=== PATIENT | male | born 1950 | race Caucasian/White ===

== ENCOUNTER 2016-10-28 11:20 | Observation (INO) | payer OTHER ==
[2016-10-28] MEDS ORDERED: BACITRACIN IRRIGATION/NS 50,000 UNITS/1,000 ML BTL IRR ONE (11:27)
[2016-10-28] MEDS ORDERED: diphenhydrAMINE 25 MG CAP PO ONE (11:27)
[2016-10-28] MEDS ORDERED: NS 1,000 ML IV ONE (11:27)
[2016-10-28] MEDS ORDERED: DIAZEPAM 5 MG TAB PO ONE (11:27)
[2016-10-28] MEDS ORDERED: ceFAZolin 2 GM/DEXTROSE 100 ML IV ONE (11:27)
--- NOTE | 2016-10-28 11:45 | CPEKG ---
Heart Rate: 108 RR Interval: 556 QRSD Interval: 92 QT Interval: Invalid QTC Interval: Invalid QRS Massey: -26 T Wave Massey: 82 EKG Severity - ABNORMAL ECG - EKG Impression: ATRIAL FIBRILLATION, V-RATE 77-123 EKG Impression: BORDERLINE LEFT AXIS DEVIATION Electronically Signed By: Damion Finnegan 28-Oct-2016 11:47:45
[2016-10-28 12:09] LABS: % IMMATURE GRANULYOCYTES 0.3 % (0.0-1.1); ABSOLUTE IMMATURE GRANULOCYTES 0.02 10^3/uL (0.00-0.10); ADD DIFF? NO; ADD MORPH? NO; ADD SCAN? NO; ATYPICAL LYMPHOCYTE FLAG 0 (0-99); FRAGMENT RBC FLAG 0 (0-99); HEMATOCRIT 43.2 % (40.0-51.0); HEMOGLOBIN 14.4 g/dL (13.7-17.5); LEFT SHIFT FLG 0 (0-99); LIPEMIA HEMOLYSIS FLAG 80 (0-99); MEAN CELL HEMOGLOBIN 32.4 pg (27.9-34.1); MEAN CELL HEMOGLOBIN CONCENTR. 33.3 g/dL (32.4-36.7); MEAN CELL VOLUME 97.1 fL (81.5-99.8); PLATELET CLUMPS FLAG 0 (0-99); PLATELET COUNT 129 10^3/uL (150-400); RED BLOOD CELL COUNT 4.45 10^6/uL (4.40-6.38); RED CELL DISTRIBUTION WIDTH 16.4 % (11.5-15.2)
[2016-10-28 12:18] LABS: ANION GAP 16 mEq/L (8-16); CALCIUM 9.4 mg/dL (8.5-10.4); CARBON DIOXIDE 19 mEq/l (22-31); CHLORIDE 104 mEq/L (97-110); CREATININE 2.5 mg/dL (0.7-1.3); GLOMERULAR FILTRATION RATE 26; GLUCOSE 193 mg/dL (70-100); SODIUM 139 mEq/L (134-144)
[2016-10-28 12:19] LABS: INR 1.52 (0.83-1.16); PROTIME(PATIENT) 18.3 SEC (12.0-15.0)
[2016-10-28] MEDS ORDERED: BUPIVACAINE 0.5% 30 ML SDV ONE (13:35)
[2016-10-28] MEDS ORDERED: LIDOCAINE 1% 300 MG/30 ML SDV ONE (13:35)
[2016-10-28] MEDS ORDERED: LIDO/EPI 1% **for epidural** 30 ML SDV ONE (13:35)
[2016-10-28] MEDS ORDERED: MIDAZOLAM 2 MG/2 ML VIAL ONE ×2 (14:06→14:18)
[2016-10-28] MEDS ORDERED: fentaNYL 100 MCG/2 ML INJ ONE (14:17)
[2016-10-28] MEDS ORDERED: PROPOFOL/EMULSION 500 MG/50 ML BOTTLE IV ONE (14:18)
[2016-10-28] MEDS ORDERED: WARFARIN SODIUM 7.5 MG TAB PO SCH (16:00)
[2016-10-28] MEDS ORDERED: BORTEZOMIB SC SCH (16:00)
[2016-10-28] MEDS ORDERED: CALCIUM CHLORIDE 1 GM/10 ML INJ ONE (16:08)
[2016-10-28] MEDS ORDERED: LIDOCAINE 2% JELLY 5 ML TUBE ONE (16:08)
[2016-10-28] MEDS ORDERED: PHENYLEPHRINE HCL 100 MCG/ML SYR ONE (16:08)
[2016-10-28] MEDS ORDERED: LIDOCAINE 2% 100 MG/5 ML SYR ONE (16:08)
[2016-10-28] MEDS ORDERED: RANITIDINE 50 MG/2 ML VIAL ONE (16:08)
[2016-10-28] MEDS ORDERED: epHEDrine SULFATE 10 MG/ML SYR ONE (16:08)
[2016-10-28] MEDS ORDERED: DEXAMETHASONE 4 MG/ML VIAL ONE (16:08)
[2016-10-28] MEDS ORDERED: NON-FORMULARY NEW DRUG (Simvastatin [Zocor] 20 MG) PO SCH (18:00)
[2016-10-28] MEDS ORDERED: ATORVASTATIN CALCIUM 10 MG TAB PO SCH (18:00)
[2016-10-28] MEDS ORDERED: TORSEMIDE 50 MG PO SCH (18:00)
[2016-10-28] MEDS ORDERED: TORSEMIDE 20 MG TAB PO SCH (18:00)
[2016-10-28] MEDS ORDERED: HYDROCODONE/APAP 5/325 TAB PO PRN (19:53)
[2016-10-28] MEDS: glipiZIDE 10 MG TAB PO SCH (20:28)
[2016-10-28] MEDS: METOPROLOL TARTRATE 100 MG TAB PO SCH (20:28)
[2016-10-28] MEDS: ACYCLOVIR 200 MG CAP PO SCH (20:29)
[2016-10-28] MEDS ORDERED: INSULIN GLARGINE 100 UNITS/ML SYRINGE SC SCH (21:00)
[2016-10-28 23:40] VITALS: RESP 16
[2016-10-29 05:06] LABS: % IMMATURE GRANULYOCYTES 0.3 % (0.0-1.1); ABSOLUTE IMMATURE GRANULOCYTES 0.02 10^3/uL (0.00-0.10); ADD DIFF? NO; ADD MORPH? NO; ADD SCAN? NO; ATYPICAL LYMPHOCYTE FLAG 0 (0-99); FRAGMENT RBC FLAG 0 (0-99); HEMATOCRIT 41.8 % (40.0-51.0); HEMOGLOBIN 13.8 g/dL (13.7-17.5); LEFT SHIFT FLG 0 (0-99); LIPEMIA HEMOLYSIS FLAG 80 (0-99); MEAN CELL HEMOGLOBIN 32.2 pg (27.9-34.1); MEAN CELL VOLUME 97.7 fL (81.5-99.8); MEAN PLATELET VOLUME 11.5 fL (8.7-11.7); PLATELET CLUMPS FLAG 0 (0-99); PLATELET COUNT 117 10^3/uL (150-400); RED BLOOD CELL COUNT 4.28 10^6/uL (4.40-6.38); RED CELL DISTRIBUTION WIDTH 16.8 % (11.5-15.2)
[2016-10-29 05:21] LABS: ANION GAP 15 mEq/L (8-16); CARBON DIOXIDE 20 mEq/l (22-31); CHLORIDE 102 mEq/L (97-110); CREATININE 2.4 mg/dL (0.7-1.3); GLOMERULAR FILTRATION RATE 27; GLUCOSE 236 mg/dL (70-100); POTASSIUM 4.4 mEq/L (3.5-5.2); SODIUM 137 mEq/L (134-144)
[2016-10-29] MEDS: glipiZIDE 10 MG TAB PO SCH (07:34)
[2016-10-29] MEDS: ACYCLOVIR 200 MG CAP PO SCH (07:35)
[2016-10-29] MEDS: METOPROLOL TARTRATE 100 MG TAB PO SCH (07:35)
[2016-10-29 07:37] VITALS: BP 121/85; PULSE 93
[2016-10-29 07:39] VITALS: TEMP 98.4; O2SAT 95
--- NOTE | 2016-10-29 08:34 | CPEKG ---
Heart Rate: 96 RR Interval: 625 QRSD Interval: 90 QT Interval: 404 QTC Interval: 511 QRS Santo: -22 T Wave Santo: 105 EKG Severity - ABNORMAL ECG - EKG Impression: ATRIAL FIBRILLATION, V-RATE 60-127 EKG Impression: BORDERLINE LEFT AXIS DEVIATION EKG Impression: CONSIDER ANTEROSEPTAL INFARCT EKG Impression: NONSPECIFIC T ABNORMALITIES, LATERAL LEADS Electronically Signed By: Celso Gomez 30-Oct-2016 07:25:22
[2016-10-29] MEDS ORDERED: CHOLECALCIFEROL VIT D3 1,000 UNITS TAB PO SCH (09:00)
[2016-10-29] MEDS ORDERED: ASPIRIN 325 MG TAB PO SCH (09:00)
[2016-10-29] MEDS ORDERED: MULTIVITAMINS 1 EACH TAB PO SCH (09:00)
[2016-10-29] MEDS ORDERED: CALCITRIOL 0.25 MCG CAP PO SCH (09:00)
[2016-10-29] MEDS ORDERED: TORSEMIDE 20 MG TAB PO SCH (10:00)
--- NOTE | 2016-10-29 11:08 | GDS ---
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 Celso Gomez. The patient is also under the care of Dr. Damion Finnegan and Dr. Pollo Mares. DISCHARGE DIAGNOSES: 1. Ischemic cardiomyopathy with an ejection fraction of 33% by his most recent echo status post single-chamber Biotronik ICD. 2. Coronary artery disease, status post 5-vessel CABG in March 2012. 3. Permanent atrial fibrillation. 4. Chronic renal insufficiency with baseline creatinine of 2.3. 5. Multiple myeloma. 6. Uncontrolled diabetes. 7. Obesity. 8. Peripheral neuropathy. 9. Valvular heart disease with moderate mitral regurgitation. HOSPITAL COURSE: For detailed H and P, please see prior dictation. Briefly, the patient is a 65-year-old male with a history of coronary artery disease status post CABG and ischemic cardiomyopathy with an ejection fraction of approximately 33% by his most recent echocardiogram. He is on good medical therapy but continued to have depressed ejection fraction, and therefore the decision was made to proceed with a single-chamber ICD. There was discussion whether the patient would benefit from a biventricular ICD and AV raj ablation given his permanent atrial fibrillation. He was concerned about possible renal toxicity and being pacer dependent, and therefore, the decision was made to proceed with a single-chamber ICD. This was performed by Dr. Pollo Mares on 10/28/2016. The procedure was uncomplicated. The following morning, he complained of mild discomfort over the ICD site without any significant pain. His chest x-ray was negative for pneumothorax. He was monitored on telemetry and is currently in atrial fibrillation. His EKG also confirms atrial fibrillation without pacing. His device was interrogated the day of discharge and is working properly. LABORATORY: INR 1.52. PHYSICAL EXAMINATION: GENERAL: Patient appears in no acute distress. VITALS: Blood pressure 121/85, heart rate 93, oxygen saturation 95% on 1 L of oxygen, afebrile. LUNGS: Clear to auscultation. No wheezes, rhonchi, or crackles auscultated. CARDIAC: Regular rate and rhythm with a 2/6 murmur consistent with mitral regurgitation. Chest wall: His ICD site is clean and intact without any evidence of hematoma or infection. DISCHARGE MEDICATIONS: His medications are unchanged. He will continue multivitamin; Velcade IV; Zocor 20 mg daily; glipizide 10 mg daily; aspirin 325 mg daily; Demadex 100 mg in the morning and 50 mg in the afternoon; Lantus 20 units at bedtime; vitamin D3 1000 units daily; Zovirax 200 mg b.i.d.; Coumadin 5 mg Wednesday, Wednesday, , Wednesday and 7.5 mg the remaining days; Lopressor 100 mg b.i.d. PLAN: The patient is currently stable and ready for discharge home. He has been given ICD precautions. He is scheduled to follow up for a wound check and pacer interrogation on 11/04 at 2:30. He will resume Coumadin and have an INR checked at the cancer clinic next Wednesday. Greater than 30 minutes was spent coordinating the patients care today. /[id number]/MODL MTDD
[2016-10-29] MEDS ORDERED: WARFARIN SODIUM 5 MG TAB PO SCH (16:00)
--- NOTE | 2016-10-30 09:15 | EPPROC ---
Electrophysiology Procedure Note: PROCEDURE PERFORMED: 1. Implantation of an V Implantable Cardioverter Defibrillator 3. Fluoroscopy INDICATION: This is a 65 yr old with known CAD s/p IA EF 30%, NYHA III despite optimal medical management. In view of this it was decided to implant a single chamber ICD for primary prevention of SCD. PROCEDURE NOTE: Patient presented to the cardiac catheterization laboratory in a fasting, post absorptive state. Moderate sedation administered. The left infraclavicular area was prepped and draped in the usual sterile fashion. Lidocaine plus bupivacaine was used for local anesthesia. Using a combination of blunt and sharp dissection and electrocautery, the dissection was carried down to the prepectoral fascia. All bleeding was controlled with electrocautery. Fluoroscopy was utilized during the entire procedure for venous access and placement of the lead. Using usual technique, left cephalic vein was accessed. Placement of the guidewire into the venous system was confirmed by low-pressure blood return and also by visualizing the guidewire advancing into the inferior vena cava. A purse string suture was applied around the guidewire. One #9 Macedonian sheath was advanced under fluoroscopic guidance over the guidewire. An active fixation ventricular ICD lead was advanced into the right ventricular apex and screwed in place. The peel away sheath was removed. Pacing thresholds, sensing parameters and lead impedances were measured. There was no diaphragmatic stimulation at maximum output. The lead was sutured to the prepectoral fascia with 3 nonabsorbable sutures. Pocket was created. The pocket was again inspected for any bleeding. The lead was attached to the ICD securely. The ICD was inserted into the pocket and secured in place with a nonabsorbable suture. Fluoroscopy was performed in KENNEDY and PUERTO RICAN planes to verify right sided placement of the lead. Also fluoroscopy of the ICD pocket was performed. The ICD pocket was closed in 3 layers with vicryl. Appropriate dressing was applied. The patient left the cardiac catheterization laboratory in stable condition. Serial Numbers: 1. Device : Biotronik Iperia 7 VR T DX SN [id number] 2. Ventricular Lead: Biotronik Linox SN [id number] Stimulation Thresholds & Impedance Measurements: 1. Ventricular Lead 12.8mV, 0.5@0.4ms, 688 Ohms Pacing Parameters: 1. Pacing mode VVI 2. Lower rate 40 ppm Tachycardia therapy parameters: VT zone: Detection: 182 bpm First therapy : ATP84% TCL, 8 beats, 2 sequences Second therapy: 40 Joule Subsequent therapies : 40 Joule VF zone : Detection: 214 bpm First therapy: 40 Joule Subsequent therapies: 40Joule Patient Problems: Problems Problem Status Onset CHF (congestive heart failure) Acute
== END 2016-10-29 12:01 | disposition home or self-care (01) ==
LOC: FCATH 11:20 → F2W 15:57
PROVIDERS: ADMIT Internal Medicine Cardiovascular Disease; ATTEND Internal Medicine Cardiovascular Disease
PROC: B5191ZA Fluoroscopy of Inferior Vena Cava using Low Osmolar Contrast, Guidance (ICD-10-PCS; principal; 2016-10-28)
PROC: 02HK3KZ Insertion of Defibrillator Lead into Right Ventricle, Percutaneous Approach (ICD-10-PCS; principal; 2016-10-28)
PROC: 0JH608Z Insertion of Defibrillator Generator into Chest Subcutaneous Tissue and Fascia, Open Approach (ICD-10-PCS; principal; 2016-10-28)
DX: I25.5 Ischemic cardiomyopathy (principal); I48.2 Chronic atrial fibrillation; I25.10 Atherosclerotic heart disease of native coronary artery without angina pectoris; I35.1 Nonrheumatic aortic (valve) insufficiency; E11.649 Type 2 diabetes mellitus with hypoglycemia without coma; E11.29 Type 2 diabetes mellitus with other diabetic kidney complication; E11.51 Type 2 diabetes mellitus with diabetic peripheral angiopathy without gangrene; N18.9 Chronic kidney disease, unspecified; E66.01 Morbid (severe) obesity due to excess calories; Z68.35 Body mass index [BMI] 35.0-35.9, adult; Z95.1 Presence of aortocoronary bypass graft
CPT/HCPCS: 33249; 71020; 93005; C1769; G0378; C1722; C1777; J0690; J1100; J1815; J2001; J2250; J2370; J2704; J2780; J3010

== ENCOUNTER → 2018-01-17 | Outpatient (CLI) | payer OTHER | LOC: BHFA 10:45 | PROVIDERS: ATTEND Internal Medicine Cardiovascular Disease | DX: I50.22 Chronic systolic (congestive) heart failure (principal) ==

== ENCOUNTER → 2018-01-18 | Outpatient (CLI) | payer OTHER | LOC: FIMAGING 13:39 → EDSTATUS 13:40 | PROVIDERS: ATTEND Internal Medicine Cardiovascular Disease | DX: J90 Pleural effusion, not elsewhere classified (principal); I51.7 Cardiomegaly; Z95.0 Presence of cardiac pacemaker ==

== ENCOUNTER 2018-03-24 18:00 | Inpatient (IN) | payer OTHER ==
--- NOTE | 2018-03-24 18:27 | EDPHY ---
H & P Time Seen by Provider: 03/24/18 18:24 HPI/ROS: CHIEF COMPLAINT: Severe shortness of breath HISTORY OF PRESENT ILLNESS: Discharge about 4 days ago after GI bleed, has history of congestive heart failure and cardiomyopathy. History of atrial fibrillation and coronary disease. Presents today with 2 days of worsening dyspnea on exertion. Today it is severe and he could not even go from his car to his primary care doctor's Clinic, and then when he was wheeled over here even getting an out of wheelchair made him very short of breath. Associated with a nonproductive cough for about 6 months, no chest pain, no leg swelling. He does not have any noticeable further rectal bleeding or hematemesis or coffee -ground emesis. REVIEW OF SYSTEMS: Eye: no change in vision ENT: no sore throat Cardiac: no chest pain or syncope Pulmonary: HPI Abdomen: no vomiting, diarrhea, abdominal pain Musculoskeletal: no back pain Skin: no rash Neuro: no headache Constitutional: no fever : no urinary symptoms A comprehensive 10 point review of systems is otherwise negative aside from elements mentioned in the history of present illness. PAST MEDICAL HISTORY: History and physical dated 03/19/2018 personally reviewed includes rectal bleeding, atrial fibrillation, coronary disease with bypass surgery in [place], diabetes, sleep apnea, COPD, Selam's gangrene in 2010, multiple myeloma. Cardiomyopathy with ejection fraction 20-25% in 2017. Social history: Nonsmoker General Appearance: Alert and conversant, cooperative. Eyes: No scleral icterus. ENT, Mouth: Normal mucous membranes. Respiratory: Bilateral crackles in both lung borges, no wheezing. Cardiovascular: Irregular rate and rhythm. Gastrointestinal: Abdomen is soft and non tender. Neurological: Alert, face symmetric, normal motor and sensory in extremities. Skin: Warm and dry, no rashes. Musculoskeletal: No peripheral edema. Psychiatric: Not agitated. Emergency Department course/MDM: Differential includes but not limited to anemia, acute coronary syndrome, CHF, influenza, tamponade. 1934: Admission likely CHF exacerbation with known cardiomyopathy and severely high BNP. INR 2.24 pulmonary embolism unlikely. Smoking Status: Never smoked Constitutional: Initial Vital Signs Temperature (C) 36.3 C 03/24/18 18:11 Heart Rate 106 H 03/24/18 18:11 Respiratory Rate 25 H 03/24/18 18:11 Blood Pressure 108/78 03/24/18 18:11 O2 Sat (%) 97 03/24/18 18:11 O2 Delivery Mode Room Air Allergies/Adverse Reactions: amiodarone Allergy (Verified 03/24/18 19:36) Home Medications: Medication Instructions Recorded Multivitamins [Multivitamin (*)] 1 each PO DAILY 04/08/12 Aspirin [Aspirin 325 mg (*)] 325 mg PO HS 07/16/14 Simvastatin [Zocor] 20 mg PO DAILY18 07/16/14 glipiZIDE [Glipizide] 10 mg PO BID 07/16/14 Calcitriol [Calcitriol (*)] 0.25 mcg PO DAILY 10/28/16 Cholecalciferol Vit D3 [Vitamin D3 1,000 units PO DAILY 10/28/16 (*)] Insulin Glargine [Lantus 100 25 units SC HS 10/28/16 UNITS/ML] Torsemide [Demadex] 50 mg PO DAILY18 10/28/16 Torsemide [Demadex] 100 mg PO DAILY 10/28/16 Warfarin Sodium [Coumadin 5MG (*)] 5 mg PO SUMOWETHFR@16 10/28/16 Warfarin Sodium [Coumadin 7.5MG 7.5 mg PO TUSA@16 10/28/16 (*)] Metoprolol Succinate 200 mg PO DAILY 03/19/18 valACYclovir [Valtrex (*)] 500 mg PO Q2D 03/19/18 Medical Decision Making - Diagnostics EKG Interpretation: 12-lead EKG interpreted by me; official reading is in computer system. My interpretation is atrial fibrillation with old inferior and anterior PA. Rate 114. Imaging Results: Imaging Impressions Chest X-Ray 03/24/18 18:36 Impression: Stable chest. Cardiomegaly post cardiac interventions. Small left pleural effusion. Imaging: I viewed and interpreted images myself Differential Diagnosis: Differential diagnosis considered for shortness of breath including but not limited to pulmonary infectious process, COPD, asthma, pulmonary embolus and congestive heart failure. Consult/Admit Bed Type: [place] 2001 - Data Points Laboratory Results: Laboratory Results 03/24/18 18:40 03/24/18 18:40 03/24/18 03/24/18 03/24/18 18:49 18:40 18:40 WBC RBC Hgb Hct MCV MCH MCHC RDW Plt Count MPV Neut % (Auto) Lymph % (Auto) [place] % (Auto) Eos % (Auto) Baso % (Auto) Nucleat RBC Rel Count Absolute Neuts (auto) Absolute Lymphs (auto) Absolute Monos (auto) Absolute Eos (auto) Absolute Basos (auto) Absolute Nucleated RBC Immature Gran % Immature Gran # RBC/WBC/PLT Morphology Platelet Estimate Polychromasia Microcytic Cells Oval Macrocytes Elliptocytes PT 24.9 SEC H SEC (12.0-15.0) INR 2.25 H (0.83-1.16) Sodium 134 mEq/L L mEq/L (135-145) Potassium 3.6 mEq/L mEq/L (3.5-5.2) Chloride 106 mEq/L mEq/L (97-110) Carbon Dioxide 19 mEq/l L mEq/l (22-31) Anion Gap 9 mEq/L mEq/L (6-14) BUN 49 mg/dL H mg/dL (7-23) Creatinine 2.8 mg/dL H mg/dL (0.7-1.3) Estimated GFR 23 Glucose 231 mg/dL H mg/dL (70-100) Calcium 8.4 mg/dL L mg/dL (8.5-10.4) POC Troponin I 0.05 ng/mL ng/mL (0.00-0.08) NT-Pro-B Natriuret Pep 07000 pg/mL H pg/mL (0-125) 03/24/18 18:40 WBC 6.44 10^3/uL 10^3/uL (3.80-9.50) RBC 3.33 10^6/uL L 10^6/uL (4.40-6.38) Hgb 10.1 g/dL L g/dL (13.7-17.5) Hct 30.8 % L % (40.0-51.0) MCV 92.5 fL fL (81.5-99.8) MCH 30.3 pg pg (27.9-34.1) MCHC 32.8 g/dL g/dL (32.4-36.7) RDW 21.2 % H % (11.5-15.2) Plt Count 235 10^3/uL 10^3/uL (150-400) MPV 10.9 fL fL (8.7-11.7) Neut % (Auto) 82.3 % H % (39.3-74.2) Lymph % (Auto) 5.7 % L % (15.0-45.0) [place] % (Auto) 7.6 % % (4.5-13.0) Eos % (Auto) 3.4 % % (0.6-7.6) Baso % (Auto) 0.5 % % (0.3-1.7) Nucleat RBC Rel Count 0.9 % H % (0.0-0.2) Absolute Neuts (auto) 5.30 10^3/uL 10^3/uL (1.70-6.50) Absolute Lymphs (auto) 0.37 10^3/uL L 10^3/uL (1.00-3.00) Absolute Monos (auto) 0.49 10^3/uL 10^3/uL (0.30-0.80) Absolute Eos (auto) 0.22 10^3/uL 10^3/uL (0.03-0.40) Absolute Basos (auto) 0.03 10^3/uL 10^3/uL (0.02-0.10) Absolute Nucleated RBC 0.06 10^3/uL H 10^3/uL (0-0.01) Immature Gran % 0.5 % % (0.0-1.1) Immature Gran # 0.03 10^3/uL 10^3/uL (0.00-0.10) RBC/WBC/PLT Morphology TNP Platelet Estimate TNP Polychromasia 1+ H Microcytic Cells 1+ H Oval Macrocytes 1+ H Elliptocytes 1+ H PT INR Sodium Potassium Chloride Carbon Dioxide Anion Gap BUN Creatinine Estimated GFR Glucose Calcium POC Troponin I NT-Pro-B Natriuret Pep Point of Care Test Results: Chemistry 03/24/18 18:49 POC Troponin I 0.05 ng/mL ng/mL (0.00-0.08) Departure - Departure Disposition: [facility] Inpatient Acute Clinical Impression: CHF (congestive heart failure) Condition: Good
--- NOTE | 2018-03-24 18:39 | CPEKG ---
Test Reason : OPEN Blood Pressure : / mmHG Vent. Rate : 114 BPM Atrial Rate : 000 BPM P-R Int : 168 ms QRS Dur : 091 ms QT Int : 352 ms P-R-T Axes : 000 -15 109 degrees QTc Int : 485 ms Atrial fibrillation Inferior infarct, old Anterior infarct, old Lateral leads are also involved Confirmed by Mahad Mulligan ([id number]) on 03/24/2018 6:39:18 PM Referred By: Confirmed By:Mahad Mulligan
[2018-03-24 18:52] LABS: PLATELET COUNT 235 10^3/uL (150-400)
[2018-03-24 19:02] LABS: INR 2.25 (0.83-1.16); PROTIME(PATIENT) 24.9 SEC (12.0-15.0)
[2018-03-24] MEDS ORDERED: FUROSEMIDE 40 MG/4 ML VIAL IVP ONE ×2 (21:47→21:48)
[2018-03-24] MEDS ORDERED: ONDANSETRON 4 MG/2 ML VIAL IVP PRN (21:57)
[2018-03-24] MEDS ORDERED: ACETAMINOPHEN 325 MG TAB PO PRN (21:57)
[2018-03-24] MEDS ORDERED: ONDANSETRON DISINTEGRATING 4 MG TAB PO PRN (21:57)
--- NOTE | 2018-03-24 22:57 | GHP ---
DATE OF ADMISSION: 03/24/2018 HISTORY OF PRESENT ILLNESS: The patient is a 67-year-old gentleman with a history of systolic heart failure and EF of 25% who was recently admitted with a GI bleed and coagulopathy, where he received a couple units of packed cells, a couple units of FFP, some IV fluids. He also had Malagasy food last evening. He presented to his primary care physician's office where he had significant dyspnea on exe rtion and was therefore referred to the emergency [place]. [place] [address] which is high fo r him. The patient states his weight really has not gone up. He does not note increased lower extremity juan carlos ma, and his oxygen saturations were fine when he was in clinic. REVIEW OF SYSTEMS: Complete 10-point review of systems conducted and negative except as noted in the HPI. PAST MEDICAL HISTORY: Chronic atrial fibrillation, CO, CAD status post CABG, history of cardiomyopat hy with EF in 2017 to 20% to 25%, chronic kidney disease with baseline creatinine about 2.5, COPD, mo rbid obesity, multiple myeloma, type 2 diabetes on insulin, diabetic retinopathy, right hand infectio n, DENZEL, Selam gangrene, recent admission for GI bleed secondary to diverticulosis. ALLERGIES: Amiodarone. HOME MEDICATION: Aspirin, torsemide, calcitriol, vitamin D3, glipizide, glargine, metoprolol-XL succ inate 200 mg daily, multivitamin, simvastatin, valacyclovir, warfarin. SOCIAL HISTORY: No tobacco, no alcohol. 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 FAMILY HISTORY: Reviewed and unremarkable. PHYSICAL EXAMINATION: VITAL SIGNS: Blood pressure 145/80, pulse 90-114, breathing 20 times a minute , 96% on 1 L. General: In no acute distress. HEENT: Sclerae anicteric. Oropharynx clear. Mucous membranes moist. NECK: Supple without lymphadenopathy. Cannot assess JVD . LUNGS: Clear to auscultation anterolaterally. HEART: S1, S2 without murmur. ABDOMEN: Soft, no ntender, nondistended. Lower extremities: 1+ edema bilaterally. Calves nontender. SKIN: Without rash. NEUROLOGIC: Nonfocal. DIAGNOSTIC DATA: White count 6, hemoglobin 10. His baseline is 15. This is up from his discharge. Platelets are 235. INR is 2.25. Sodium 134, potassium , chloride 106, bicarb 19, BUN 49, creatinine 2.8, [place] [address]. Troponin 0.05. Chest x-ray interpreted by me shows sta ble left chest. EKG interpreted by me shows atrial fibrillation, normal axis, interval diffuse flat Ts. I discussed the case with Dr. Mahad Mulligan. ASSESSMENT/PLAN: A 67-year-old gentleman with likely acute on chronic systolic heart failure exacerb ation. 1. Heart failure. The patient received volume resuscitation and clinically appears a bit overloaded . I will diurese him with 80 of intravenous Lasix today and tomorrow noting his higher doses of tors emide. Pulmonary embolism is considered and felt unlikely at this point in time given his therapeuti c INR. 2. Gastrointestinal bleed. This is recent. He continues to have blood-loss anemia, but he is other lakhani doing okay. 3. Chronic kidney disease. At his baseline. We will follow it daily with diuresis. 4. Diabetes. We will continue his medications. 5. Prophylaxis. Therapeutically anticoagulated. 6. Disposition. Inpatient. /[id number]/MODL
[2018-03-24] MEDS: INSULIN GLARGINE 100 UNITS/ML UNIT SC SCH (23:02)
--- NOTE | 2018-03-24 23:21 | PDMN ---
Medical Necessity Medical necessity: Pt meets IP criteria as of 03/24/2018 per and MCG M-190 ( Heart Failure); est los > 2 mn for ongoing tx and management of acute on chronic systolic heart failure exacerbation with dyspnea; requiring IV diuretics , monitoring and serial labs; comorbid DM, recent GI bleed, and CKD.
[2018-03-25 04:42] LABS: PLATELET COUNT 213 10^3/uL (150-400)
[2018-03-25] MEDS ORDERED: glipiZIDE 10 MG TAB PO SCH (07:30)
--- NOTE | 2018-03-25 08:35 | ASMTLACE ---
HERMANE Acuity / Level of Answers: Yes Care: Did the patient have an inpatient admission? Comorbidities - select Answers: Chronic pulmonary disease all that apply Congestive heart failure Coronary Artery Disease Diabetes (uncontrolled or controlled) Moderate or severe liver or renal disease Previous myocardial infarction Other Notes: AFib # of Emergency department Answers: 1-2 visits in the last 6 months Score: 17 Date Signed: 03/25/2018 08:34 AM Electronically Signed By:Vivi Paul
[2018-03-25] MEDS ORDERED: FUROSEMIDE 40 MG/4 ML VIAL IVP SCH (09:00)
[2018-03-25] MEDS: CHOLECALCIFEROL VIT D3 1,000 UNITS TAB PO SCH (09:03)
[2018-03-25] MEDS: FUROSEMIDE 40 MG/4 ML VIAL IVP SCH ×2 (09:03→15:36)
[2018-03-25] MEDS: MULTIVITAMINS 1 EACH TAB PO SCH (09:03)
[2018-03-25] MEDS: CALCITRIOL 0.25 MCG CAP PO SCH (09:03)
[2018-03-25] MEDS: valACYclovir 500 MG TAB PO SCH (09:03)
[2018-03-25] MEDS: METOPROLOL SUCCINATE XR 100 MG TAB PO SCH (09:03)
[2018-03-25] MEDS: WARFARIN SODIUM 5 MG TAB PO SCH (15:35)
--- NOTE | 2018-03-25 16:45 | ASMTCMCOM ---
CM Note CM Note Notes: Pt is a 67 y/o man admitted for CHF. Pt was recently d/c w/ a GI bleed from [facility] on 03/21/18. Pt will most likely d/c independent when medically stable. No therapies ordered at this time. CM available for changes. Plan: Independent Date Signed: 03/25/2018 04:44 PM Electronically Signed By:RAJAT Gonsalves
[2018-03-25] MEDS ORDERED: PROTOCOL MAGNESIUM 1 DOSE IV PRN (17:06)
[2018-03-25] MEDS ORDERED: PROTOCOL POTASSIUM 1 DOSE MISC PRN (17:06)
[2018-03-25] MEDS ORDERED: D50W 25 GM/50 ML SYR IVP PRN (17:10)
--- NOTE | 2018-03-25 17:10 | HOSPPROG ---
Hospitalist Progress Note Assessment/Plan: #CHF, Acute, Systolic #CKD, Cr baseline is 2.5, at baseline #Chronic Afib #chronic AC #Recent GI bleed #COPD, not in exacerbation #IDDM Plan: cont Lasix IV BID monitor Cr optimize glucose mgm stop Glipizide, risk for hypoglycemia in setting of insulin start ISS cont inpatient Subjective: feeling better. Less SOB Objective: Vital Signs Temp Pulse Resp BP Pulse Ox 36.8 C 110 H 18 122/84 H 98 03/25/18 11:54 03/25/18 15:24 03/25/18 11:54 03/25/18 15:24 03/25/18 11:54 Laboratory Results 03/25/18 04:08 03/25/18 04:08 03/24/18 03/25/18 03/26/18 05:59 05:59 05:59 Intake Total 300 Output Total 1200 250 Balance -900 -250 PT 24.9 SEC (12.0-15.0) H 03/24/18 18:40 INR 2.25 (0.83-1.16) H 03/24/18 18:40 - Physical Exam Constitutional: no apparent distress Eyes: PERRL, EOMI Ears, Nose, Mouth, Throat: moist mucous membranes, hearing normal, ears appear normal Cardiovascular: regular rate and rhythym, edema Respiratory: no respiratory distress Gastrointestinal: normoactive bowel sounds Skin: warm Neurologic: AAOx3 Psychiatric: interacting appropriately, not anxious, not encephalopathic Lymph, Heme, Immunologic: No petechiae ICD10 Worksheet Patient Problems: Problems Problem Status Onset CHF (congestive heart failure) Acute Lower GI bleed Acute
[2018-03-25] MEDS: ATORVASTATIN CALCIUM 10 MG TAB PO SCH (19:05)
[2018-03-25] MEDS: ASPIRIN 325 MG TAB PO SCH (21:14)
[2018-03-25] MEDS: INSULIN GLARGINE 100 UNITS/ML UNIT SC SCH (21:20)
[2018-03-25] MEDS: INSULIN LISPRO 100 UNIT/ML SC SCH (21:20)
[2018-03-25] MEDS ORDERED: POTASSIUM CL 10 MEQ TAB PO ONE (21:46)
[2018-03-26 04:56] LABS: INR 2.86 (0.83-1.16); PROTIME(PATIENT) 29.9 SEC (12.0-15.0)
[2018-03-26] MEDS: INSULIN LISPRO 100 UNIT/ML SC SCH ×3 (08:16→18:31)
[2018-03-26] MEDS ORDERED: POTASSIUM CL 10 MEQ TAB PO ONE (09:05)
[2018-03-26] MEDS ORDERED: MAGNESIUM SULF 1 GM/DEXTROSE 100 ML IV ONE (09:06)
[2018-03-26] MEDS: CALCITRIOL 0.25 MCG CAP PO SCH (09:38)
[2018-03-26] MEDS: CHOLECALCIFEROL VIT D3 1,000 UNITS TAB PO SCH (09:38)
[2018-03-26] MEDS: MULTIVITAMINS 1 EACH TAB PO SCH (09:39)
[2018-03-26] MEDS: METOPROLOL SUCCINATE XR 100 MG TAB PO SCH (09:39)
[2018-03-26] MEDS ORDERED: FUROSEMIDE 100 MG/10 ML VIAL IVP ONE (12:11)
--- NOTE | 2018-03-26 12:54 | HOSPPROG ---
Hospitalist Progress Note Assessment/Plan: #CHF, Acute, Systolic #CKD, Cr baseline is 2.5, at baseline #Chronic Afib #chronic AC #Recent GI bleed #COPD, not in exacerbation #IDDM Plan: Decrease IV Lasix, consider transition to PO tomorrow monitor Cr optimize glucose mgmt stop Glipizide, risk for hypoglycemia in setting of insulin cont ISS cont inpatient, consider d/c tomorrow wean off O2, he does not use at baseline Subjective: feeling better. less SOB. no n/v Objective: Vital Signs Temp Pulse Resp BP Pulse Ox 36.7 C 100 17 138/92 H 96 03/26/18 11:56 03/26/18 11:56 03/26/18 11:56 03/26/18 11:56 03/26/18 11:56 Laboratory Results 03/25/18 04:08 03/26/18 04:14 03/25/18 03/26/18 03/27/18 05:59 05:59 05:59 Intake Total 300 2580 500 Output Total 1200 3250 Balance -900 -670 500 PT 29.9 SEC (12.0-15.0) H 03/26/18 04:14 INR 2.86 (0.83-1.16) H 03/26/18 04:14 - Physical Exam Constitutional: no apparent distress Eyes: PERRL Ears, Nose, Mouth, Throat: moist mucous membranes Cardiovascular: regular rate and rhythym, edema Respiratory: no respiratory distress, no rales or rhonchi, reduced air movement Gastrointestinal: normoactive bowel sounds, soft, non-tender abdomen Skin: warm Neurologic: AAOx3 Psychiatric: interacting appropriately, not anxious, not encephalopathic Lymph, Heme, Immunologic: No petechiae ICD10 Worksheet Patient Problems: Problems Problem Status Onset CHF (congestive heart failure) Acute Lower GI bleed Acute
[2018-03-26] MEDS ORDERED: FUROSEMIDE 40 MG/4 ML VIAL IVP ONE (13:30)
[2018-03-26] MEDS: FUROSEMIDE 40 MG/4 ML VIAL IVP SCH (16:42)
[2018-03-26] MEDS: WARFARIN SODIUM 7.5 MG TAB PO SCH (18:30)
[2018-03-26] MEDS: ATORVASTATIN CALCIUM 10 MG TAB PO SCH (18:31)
[2018-03-26] MEDS: INSULIN GLARGINE 100 UNITS/ML UNIT SC SCH (21:21)
[2018-03-26] MEDS: ASPIRIN 325 MG TAB PO SCH (21:21)
[2018-03-27] MEDS: CALCITRIOL 0.25 MCG CAP PO SCH (07:54)
[2018-03-27] MEDS: INSULIN LISPRO 100 UNIT/ML SC SCH ×3 (07:55→18:22)
[2018-03-27] MEDS: METOPROLOL SUCCINATE XR 100 MG TAB PO SCH (07:55)
[2018-03-27] MEDS: CHOLECALCIFEROL VIT D3 1,000 UNITS TAB PO SCH (07:55)
[2018-03-27] MEDS: valACYclovir 500 MG TAB PO SCH (07:55)
[2018-03-27] MEDS: MULTIVITAMINS 1 EACH TAB PO SCH (07:55)
[2018-03-27] MEDS ORDERED: POTASSIUM CL 10 MEQ TAB PO ONE (09:48)
--- NOTE | 2018-03-27 11:18 | GCON ---
CARDIOLOGY CONSULTATION DATE OF CONSULTATION: 03/27/2018 CHIEF COMPLAINT: CHF. HISTORY OF PRESENT ILLNESS: This is a 67-year-old gentleman who is known to [facility] deshaun Gomez in the CHF Clinic. He has a significant past medical history of ischemic systolic heart failure with EF of 25% who is in chronic atrial fibrillation with defibrillator in place who has been well maintained on medications. Recently, he was admitted for an upper GI bleed, and at that time r eceived blood products, and had stable GI function; however, over the last 2 or 3 days prior to admis lorie, he became more and more short of breath. He got admitted with a BNP of 27,000. He has receive d IV Lasix and is diuresing at this time and feeling better. He still is requiring oxygen. At this point, he has had no other cardiac issues, such as chest pain, AICD shocks, or other issues. Otherwi se, he is without fever, chills, nausea, vomiting, GI or complaints. He is compliant with his med ications. REVIEW OF SYSTEMS: Negative for 10-point review of systems, except for the HPI. PAST MEDICAL HISTORY: As noted above, he has had chronic ischemic cardiomyopathy, chronic atrial fib rillation, chronic renal insufficiency with a creatinine in the 2.5 range, COPD, morbid obesity, mult iple myeloma. ALLERGIES: Amiodarone. HOME MEDICATIONS: Include aspirin, torsemide, glipizide, metoprolol, simvastatin, and warfarin. SOCIAL HISTORY: He does not smoke. Does not drink alcohol. FAMILY HISTORY: Noncontributory. EXAM: VITAL SIGNS: Blood pressure is 123/83, heart rate in the 80s in atrial fibrillation. GENERAL : He is alert, oriented, conscious. He is lying comfortably in bed. HEENT: Mouth: Oropharynx wer e supple. LUNGS: Some crackles on deep inspiration. CARDIOVASCULAR: Irregular rhythm, irregular r ate. No JVP was noted. ABDOMEN: Soft, nontender. Normoactive bowel sounds. MUSCULOSKELETAL: Francie wed no edema. Pulses were 2+ and symmetrical. LABORATORY DATA: Hemoglobin is 10, which is stable. Creatinine 2.5 baseline. ASSESSMENT: Acute systolic heart failure, most likely iatrogenic due to recent hospitalization for g astrointestinal bleed and subsequent intravenous fluid. Patient is doing better during this hospital ization with bedrest and intravenous Lasix. He is still requiring oxygen. He is approximately -1.5 L at this time. No symptoms of acute coronary syndrome symptomatology. PLAN: I had a long talk with him at this point, our plan will be: Today, we will restart his home d iuretics with torsemide 100 mg in the morning and 50 mg q.p.m. Will have patient get out of bed and walk with oxygen as needed. Hopefully, his diuresis will continue and he will be able to discharged in a short amount of time. I will notify Dr. Gomez of his admission on Wednesday to see if there is any other further input on his standpoint, but at this point, patient feels comfortable stable, and has no questions. /[id number]/MODL
[2018-03-27] MEDS: TORSEMIDE 20 MG TAB PO SCH ×2 (11:32→18:11)
--- NOTE | 2018-03-27 14:33 | HOSPPROG ---
Hospitalist Progress Note Assessment/Plan: #CHF, Acute, Systolic, improving #CKD, Cr baseline is 2.5, at baseline #Chronic Afib #chronic AC #Recent GI bleed #COPD, not in exacerbation #IDDM, with hyperglycemia -a1c, 03/08 is 10.4 Plan: Cards consulted today, they are restarting home diuretics. Cards to manage diuretics Will increase his Lantus today monitor Cr Glipizide was stopped, risk for hypoglycemia in setting of insulin cont ISS cont inpatient, d/c soon once volume/resp status is better. wean off O2, he does not use at baseline Subjective: no cp. still with some SOB. no n/v. Objective: Vital Signs Temp Pulse Resp BP Pulse Ox 36.7 C 102 H 14 114/87 H 90 L 03/27/18 11:19 03/27/18 11:19 03/27/18 11:19 03/27/18 11:19 03/27/18 11:19 Microbiology 03/26/18 18:30 Respiratory Panel (PCR) - Final Nasal, Sinus - Swab No Organism Detected By Pcr Laboratory Results 03/25/18 04:08 03/27/18 04:06 03/26/18 03/27/18 03/28/18 05:59 05:59 05:59 Intake Total 2580 1550 1000 Output Total 3250 1560 650 Balance -670 -10 350 PT 29.9 SEC (12.0-15.0) H 03/26/18 04:14 INR 2.86 (0.83-1.16) H 03/26/18 04:14 - Physical Exam Constitutional: no apparent distress Eyes: PERRL Ears, Nose, Mouth, Throat: moist mucous membranes Cardiovascular: regular rate and rhythym, edema Respiratory: no respiratory distress Gastrointestinal: normoactive bowel sounds Skin: warm Neurologic: AAOx3 Psychiatric: interacting appropriately, not anxious, not encephalopathic Lymph, Heme, Immunologic: No petechiae ICD10 Worksheet Patient Problems: Problems Problem Status Onset CHF (congestive heart failure) Acute Lower GI bleed Acute
[2018-03-27] MEDS: WARFARIN SODIUM 5 MG TAB PO SCH (16:18)
[2018-03-27] MEDS: ATORVASTATIN CALCIUM 10 MG TAB PO SCH (18:11)
[2018-03-27] MEDS: INSULIN GLARGINE 100 UNITS/ML UNIT SC SCH (21:30)
[2018-03-27] MEDS: ASPIRIN 325 MG TAB PO SCH (21:31)
[2018-03-28 05:14] LABS: INR 3.13 (0.83-1.16)
[2018-03-28] MEDS: METOPROLOL SUCCINATE XR 100 MG TAB PO SCH (08:58)
[2018-03-28] MEDS: TORSEMIDE 20 MG TAB PO SCH ×2 (08:58→17:39)
[2018-03-28] MEDS: CALCITRIOL 0.25 MCG CAP PO SCH (08:59)
[2018-03-28] MEDS: CHOLECALCIFEROL VIT D3 1,000 UNITS TAB PO SCH (08:59)
[2018-03-28] MEDS: MULTIVITAMINS 1 EACH TAB PO SCH (08:59)
[2018-03-28] MEDS: INSULIN LISPRO 100 UNIT/ML SC SCH ×3 (09:00→17:40)
--- NOTE | 2018-03-28 11:18 | PDCARPN ---
Cardiology Progress Note Chief Complaint: SCHF Assessment/Plan: Assessment: 67 y/o M PMH CAD s/p 5V- CABG 2012, SCHF with EF 25%, permanent AF with single chamber ICD, chronic AC on warfarin, CKD with baseline Cr 2.5, MM, poorly controlled DM (last A1C >10%), obesity, DENZEL/biPAP, dilated ascending aorta 4.4 cm, recent GIB 2/2 diverticulosis, recent coagulopathy, p/w worsening dyspnea. BNP greater than typical baseline now 26K (previously 10K). Pt new to me/ chart summarized. Previous notes in and [facility] reviewed. #. SCHF: p/w worsening TAPIA and more elevated BNP back on outpatient diuretic dosing #. hypoxic respiratory failure: multifactorial from SCHF, pleural effusion, untreated sleep apnea, obesity will see if we can expedite home O2 order #. CAD/CABG: last MPI without ischemia continue medical management with Atorvastatin, ASA, Metoprolol succinate/ not on ACEi due to CKD no cp currently #. DENZEL: had previously been on biPAP but is requiring a repeat sleep study which he has scheduled for this week #. CKD: Cr at typical baseline #. DM: he is working with Dr. Diaz for glycemic control #. GIB: HCT stable #. permanent AF: INR therapeutic and rate appears controlled Subjective: Notes cough that he feels is from pulmonary edema. Dyspnea improving. Reviewed/Discussed With: hospitalist (Dr. Fay) Objective: Vital Signs (8 Hrs) Temp Pulse Pulse Pulse Pulse Resp BP 03/28/18 08:00 97.5 F 87 19 127/93 H 03/28/18 06:33 99 89 91 03/28/18 03:38 97.6 F 93 20 102/78 BP BP BP Pulse Ox 03/28/18 08:00 96 03/28/18 06:33 129/83 H 117/75 142/90 H 03/28/18 03:38 97 Intake/Output (24 Hrs) 03/27/18 03/28/18 03/29/18 05:59 05:59 05:59 Intake Total 1550 2650 Output Total 1560 2300 500 Balance -10 350 -500 Intake: Oral (ml) 1550 2650 Output: Urine (ml) 1560 2300 500 Toilet 850 500 Urinal 710 1800 500 Other: Weight 132.1 kg 132.2 kg Intake Quantity Yes Sufficient Number of Voids Toilet 1 Urinal 1 1 Number of Stools Toilet 2 1 Urinal 1 Result Diagrams: 03/25/18 04:08 03/28/18 03:56 EKG: AF, CVR, ant Qs Telemetry: AF CVR Echocardiogram: from office 01/06 EF 25, mild-mod MR, mild AR/TR, ascending Ao 4.1 cm - Physical Exam Constitutional: no apparent distress Eyes: anicteric sclera Ears, Nose, Mouth, Throat: moist mucous membranes Cardiovascular: systolic murmur, irregularly irregular Respiratory: reduced air movement, inspiratory crackles (at L base) Gastrointestinal: normoactive bowel sounds, no tenderness Skin: no rashes, no abrasions, no edema Neurologic: AAOx3 Psychiatric: cooperative, interactive ICD10 Worksheet Patient Problems: Problems Problem Status Onset CHF (congestive heart failure) Acute Lower GI bleed Acute
[2018-03-28] MEDS ORDERED: POTASSIUM CL 10 MEQ TAB PO ONE (12:35)
--- NOTE | 2018-03-28 16:17 | ASMTCMCOM ---
CM Note CM Note Notes: Pt discussed in rounds. Pt would likely benefit from PT/OT, CM spoke with MD PHILLIP to submit orders. CM to follow to determine discharge plan pending evals. Plan: TBD Date Signed: 03/28/2018 04:16 PM Electronically Signed By:RAJAT Andrew
--- NOTE | 2018-03-28 16:49 | HOSPPROG ---
Hospitalist Progress Note Assessment/Plan: 67 yo M w sCHF CHF, Acute, Systolic, improving increased bnp today noted has LE edema may benefit from restarting IV diuresis, currently on home diuretics CKD, Cr baseline is 2.5, at baseline Chronic Afib warfarin, amiodarone Recent GI bleed hct stable COPD, not in exacerbation IDDM, with hyperglycemia a1c, 03/08 is 10.4 lantus increased, blood sugars OK weakness: ambulate tid w assistance Subjective: case d/w cardiology PA. not ambulating Objective: Vital Signs Temp Pulse Resp BP Pulse Ox 36.9 C 85 16 131/78 H 95 03/28/18 15:04 03/28/18 15:04 03/28/18 15:04 03/28/18 15:04 03/28/18 15:04 Laboratory Results 03/25/18 04:08 03/28/18 03:56 03/27/18 03/28/18 03/29/18 05:59 05:59 05:59 Intake Total 1550 2650 Output Total 1560 2300 1050 Balance -10 350 -1050 PT 32.0 SEC (12.0-15.0) H 03/28/18 03:56 INR 3.13 (0.83-1.16) H 03/28/18 03:56 - Physical Exam Constitutional: no apparent distress, appears nourished Eyes: PERRL, anicteric sclera Ears, Nose, Mouth, Throat: moist mucous membranes, hearing normal Cardiovascular: regular rate and rhythym, no murmur, rub, or gallop, edema Respiratory: no respiratory distress, no rales or rhonchi Gastrointestinal: normoactive bowel sounds, soft, non-tender abdomen Genitourinary: no bladder fullness, No chapman in urethra Skin: warm, normal color Musculoskeletal: full muscle strength ICD10 Worksheet Patient Problems: Problems Problem Status Onset CHF (congestive heart failure) Acute Lower GI bleed Acute
[2018-03-28] MEDS ORDERED: POTASSIUM CL 10 MEQ TAB ONE (17:35)
[2018-03-28] MEDS: WARFARIN SODIUM 5 MG TAB PO SCH (17:39)
[2018-03-28] MEDS: ATORVASTATIN CALCIUM 10 MG TAB PO SCH (17:39)
[2018-03-28] MEDS: ASPIRIN 325 MG TAB PO SCH (21:14)
[2018-03-28] MEDS: INSULIN GLARGINE 100 UNITS/ML UNIT SC SCH (21:14)
[2018-03-29 05:17] LABS: INR 2.85 (0.83-1.16); PROTIME(PATIENT) 29.8 SEC (12.0-15.0)
[2018-03-29] MEDS: valACYclovir 500 MG TAB PO SCH (08:41)
[2018-03-29] MEDS: INSULIN LISPRO 100 UNIT/ML SC SCH ×3 (08:41→18:12)
[2018-03-29] MEDS: METOPROLOL SUCCINATE XR 100 MG TAB PO SCH (08:41)
[2018-03-29] MEDS: CALCITRIOL 0.25 MCG CAP PO SCH (08:41)
[2018-03-29] MEDS: CHOLECALCIFEROL VIT D3 1,000 UNITS TAB PO SCH (08:41)
[2018-03-29] MEDS: MULTIVITAMINS 1 EACH TAB PO SCH (08:41)
[2018-03-29] MEDS: FUROSEMIDE 40 MG/4 ML VIAL IVP SCH ×2 (10:27→14:15)
[2018-03-29] MEDS ORDERED: METOPROLOL SUCCINATE XR 50 MG TAB PO ONE (10:27)
--- NOTE | 2018-03-29 11:48 | PDCARPN ---
Cardiology Progress Note Chief Complaint: SCHF Assessment/Plan: Assessment: 67 y/o M PMH CAD s/p 5V- CABG 2012, SCHF with EF 25%, permanent AF with single chamber ICD, chronic AC on warfarin, CKD with baseline Cr 2.5, MM, poorly controlled DM (last A1C >10%), obesity, DENZEL/biPAP, dilated ascending aorta 4.4 cm, recent GIB 2/2 diverticulosis, recent coagulopathy, p/w worsening dyspnea. BNP greater than typical baseline now 26K (previously 10K prior to this admission). Last echo 01/06 showed LVEF 25%, mild-mod MR, mild TR, ascending Ao 4.1 cm. Last MPI 09/05 showed large anterior scar with ischemia and EF 20%. #. SCHF: p/w worsening TAPIA and more elevated BNP back on outpatient diuretic dosing still noting fatigue and dyspnea/ will hold PO and give IV lasix defer addition of Spironolactone to outpatient setting #. hypoxic respiratory failure: multifactorial from SCHF, pleural effusion, untreated sleep apnea, obesity will see if we can expedite home O2 order #. permanent AF: on Warfarin for elevated [id number] of 4 rates appear elevated/ will increase Metoprolol succinate to 250 daily #. htn: BP above goal increase Metoprolol and watch clinical response to that #. CAD/CABG: last MPI without ischemia continue medical management with Atorvastatin, ASA, Metoprolol succinate/ not on ACEi due to CKD no cp currently #. anemia: due to recent GIB and ACD will check iron studies and see if patient would benefit from addition of iron to medical regimen #. DENZEL: had previously been on biPAP but is requiring a repeat sleep study which he has scheduled for this week #. CKD: Cr at typical baseline #. DM: he is working with Dr. Diaz for glycemic control #. GIB: no e/o of active bleeding #. permanent AF: INR therapeutic and rate appears controlled 03/29/18 11:49 Subjective: Notes fatigue. No edema or abdominal pain. Continues to note ongoing cough. No palps/cp. Elevates head of bed minimally at night. Reviewed/Discussed With: hospitalist (Dr. Fay) Objective: Vital Signs (8 Hrs) Temp Pulse Resp BP Pulse Ox 03/29/18 10:59 97.8 F 83 18 136/88 H 95 03/29/18 07:50 97.8 F 89 18 141/93 H 96 03/29/18 04:00 97.8 F 90 10 L 138/83 H 93 Intake/Output (24 Hrs) 03/28/18 03/29/18 03/30/18 05:59 05:59 05:59 Intake Total 2650 900 500 Output Total 2300 2300 300 Balance 350 -1400 200 Intake: Oral (ml) 2650 900 500 Output: Urine (ml) 2300 2300 300 Toilet 500 300 Urinal 1800 2300 Other: Weight 132.2 kg Number of Voids Toilet 1 1 Urinal 1 1 Number of Stools Toilet 1 1 Urinal 1 Result Diagrams: 03/25/18 04:08 03/28/18 03:56 Telemetry: reviewed/ AF with some RVR 100s - Physical Exam Constitutional: no apparent distress Eyes: anicteric sclera Ears, Nose, Mouth, Throat: moist mucous membranes Cardiovascular: systolic murmur, irregularly irregular Respiratory: no wheezes, reduced air movement, inspiratory crackles (bases) Gastrointestinal: normoactive bowel sounds, no tenderness Genitourinary: no suprapubic tenderness, No chapman in urethra Skin: no rashes, no abrasions Neurologic: AAOx3 Psychiatric: cooperative, interactive ICD10 Worksheet Patient Problems: Problems Problem Status Onset CHF (congestive heart failure) Acute Lower GI bleed Acute
[2018-03-29] MEDS: WARFARIN SODIUM 7.5 MG TAB PO SCH (15:12)
--- NOTE | 2018-03-29 16:53 | HOSPPROG ---
Hospitalist Progress Note Assessment/Plan: 67 yo M w sCHF CHF, Acute, Systolic, improving increased bnp today noted has LE edema restart IV diuretics dose of zaroxoyn in AM CKD, Cr baseline is 2.5, at baseline Chronic Afib warfarin, amiodarone Recent GI bleed hct stable COPD, not in exacerbation IDDM, with hyperglycemia a1c, 03/08 is 10.4 lantus increased, blood sugars OK weakness: ambulate tid w assistance PT to see Subjective: case d/w marilynn sagastume. IV diuretics restarted Objective: Vital Signs Temp Pulse Resp BP Pulse Ox 36.6 C 83 18 136/88 H 95 03/29/18 10:59 03/29/18 10:59 03/29/18 10:59 03/29/18 10:59 03/29/18 10:59 Laboratory Results 03/25/18 04:08 03/28/18 03:56 03/28/18 03/29/18 03/30/18 05:59 05:59 05:59 Intake Total 2650 900 980 Output Total 2300 2300 300 Balance 350 -1400 680 PT 29.8 SEC (12.0-15.0) H 03/29/18 04:35 INR 2.85 (0.83-1.16) H 03/29/18 04:35 - Physical Exam Constitutional: no apparent distress, appears nourished Eyes: PERRL, anicteric sclera Ears, Nose, Mouth, Throat: moist mucous membranes, hearing normal Cardiovascular: no murmur, rub, or gallop, irregularly irregular Respiratory: no respiratory distress, no rales or rhonchi Gastrointestinal: normoactive bowel sounds, soft, non-tender abdomen Genitourinary: no bladder fullness, No chapman in urethra Skin: warm, normal color Musculoskeletal: No full muscle strength Neurologic: AAOx3 ICD10 Worksheet Patient Problems: Problems Problem Status Onset CHF (congestive heart failure) Acute Lower GI bleed Acute
[2018-03-29] MEDS: ATORVASTATIN CALCIUM 10 MG TAB PO SCH (18:12)
[2018-03-29] MEDS: INSULIN GLARGINE 100 UNITS/ML UNIT SC SCH (21:41)
[2018-03-29] MEDS: ASPIRIN 325 MG TAB PO SCH (21:41)
[2018-03-30 05:06] LABS: PLATELET COUNT 203 10^3/uL (150-400)
[2018-03-30 05:11] LABS: INR 3.57 (0.83-1.16); PROTIME(PATIENT) 35.4 SEC (12.0-15.0)
[2018-03-30] MEDS: METOLAZONE 2.5 MG TAB PO SCH (09:37)
[2018-03-30] MEDS: CHOLECALCIFEROL VIT D3 1,000 UNITS TAB PO SCH (09:37)
[2018-03-30] MEDS: CALCITRIOL 0.25 MCG CAP PO SCH (09:37)
[2018-03-30] MEDS: METOPROLOL SUCCINATE XR 100 MG TAB PO SCH (09:37)
[2018-03-30] MEDS: INSULIN LISPRO 100 UNIT/ML SC SCH ×3 (09:38→17:36)
[2018-03-30] MEDS: FUROSEMIDE 40 MG/4 ML VIAL IVP SCH ×2 (09:38→17:37)
[2018-03-30] MEDS: MULTIVITAMINS 1 EACH TAB PO SCH (09:38)
--- NOTE | 2018-03-30 11:54 | PDCARPN ---
Cardiology Progress Note Chief Complaint: SCHF Assessment/Plan: Assessment: 67 y/o M PMH CAD s/p 5V- CABG 2012, SCHF with EF 25%, permanent AF with single chamber ICD, chronic AC on warfarin, CKD with baseline Cr 2.5, MM, poorly controlled DM (last A1C >10%), obesity, DENZEL/biPAP, dilated ascending aorta 4.4 cm, recent GIB 2/2 diverticulosis, recent coagulopathy, p/w worsening dyspnea. BNP greater than typical baseline now 26K (previously 10K prior to this admission). Last echo 01/06 showed LVEF 25%, mild-mod MR, mild TR, ascending Ao 4.1 cm. Last MPI 09/05 showed large anterior scar with ischemia and EF 20%. #. SCHF: p/w worsening TAPIA and more elevated BNP will continue IV lasix today and transition to PO tomorrow has also had Metolazone started defer addition of Spironolactone to outpatient setting #. hypoxic respiratory failure: multifactorial from SCHF, pleural effusion, untreated sleep apnea, obesity order started with [employer] #. permanent AF: on Warfarin for elevated [id number] of 4 rates appear moderately controlled #. htn: BP above goal increased Metoprolol and watch clinical response to that has had addition of Metolazone #. CAD/CABG: last MPI without ischemia continue medical management with Atorvastatin, ASA, Metoprolol succinate/ not on ACEi due to CKD no cp currently #. anemia: due to recent GIB and ACD will give IV iron 2/2 GIANCARLO #. DENZEL: had previously been on biPAP but is requiring a repeat sleep study which he has scheduled for this week #. CKD: Cr at typical baseline #. DM: he is working with Dr. Diaz for glycemic control #. GIB: no e/o of active bleeding 03/30/18 11:51 Subjective: No complaints. Reviewed/Discussed With: hospitalist (Dr. Fay) Objective: Vital Signs (8 Hrs) Temp Pulse Resp BP Pulse Ox 03/30/18 07:14 98.5 F 89 12 142/95 H 99 03/30/18 04:00 97.7 F 84 20 131/98 H 94 Intake/Output (24 Hrs) 03/29/18 03/30/18 03/31/18 05:59 05:59 05:59 Intake Total 900 1830 250 Output Total 2300 3050 250 Balance -1400 -1220 0 Intake: Oral (ml) 900 1830 250 Output: Urine (ml) 2300 3050 250 Toilet 2100 250 Urinal 2300 950 Other: Weight 132.2 kg 130.8 kg Number of Voids Toilet 1 Urinal 1 1 Number of Stools Toilet 1 Result Diagrams: 03/30/18 04:35 03/30/18 04:35 Cardiac Labs: Laboratory Tests 03/30/18 04:35 Iron 42.0 L Iron Saturation 16 L Telemetry: AF - Physical Exam Constitutional: no apparent distress Eyes: anicteric sclera Ears, Nose, Mouth, Throat: moist mucous membranes Cardiovascular: no rubs, no gallops, irregularly irregular Respiratory: no crackles, no wheezes, reduced air movement Gastrointestinal: normoactive bowel sounds Neurologic: AAOx3 Psychiatric: cooperative, interactive ICD10 Worksheet Patient Problems: Problems Problem Status Onset CHF (congestive heart failure) Acute Lower GI bleed Acute
[2018-03-30] MEDS: SODIUM FERRIC GLUCONAT/SUCROSE 125 MG in NS 100 ML IV SCH (12:24)
--- NOTE | 2018-03-30 15:39 | HOSPPROG ---
Hospitalist Progress Note Assessment/Plan: 67 yo M w sCHF CHF, Acute, Systolic, improving increased bnp today noted has LE edema restart IV diuretics w zaroxolyn CKD, Cr baseline is 2.5, at baseline Chronic Afib warfarin, amiodarone Recent GI bleed hct stable COPD, not in exacerbation IDDM, with hyperglycemia a1c, 03/08 is 10.4 lantus increased, blood sugars OK weakness: ambulate tid w assistance PT to see amenable to snf Subjective: improved diuresis w iv lasix and zaroxolyn. case d/w marilynn sagastume , cardiology PA Objective: Vital Signs Temp Pulse Resp BP Pulse Ox 37.0 C 96 26 H 122/89 H 91 L 03/30/18 12:00 03/30/18 12:00 03/30/18 12:00 03/30/18 12:00 03/30/18 12:00 Laboratory Results 03/30/18 04:35 03/30/18 04:35 03/29/18 03/30/18 03/31/18 05:59 05:59 05:59 Intake Total 900 1830 690 Output Total 2300 3050 850 Balance -1400 -1220 -160 PT 35.4 SEC (12.0-15.0) H 03/30/18 04:35 INR 3.57 (0.83-1.16) H 03/30/18 04:35 - Physical Exam Constitutional: no apparent distress, appears nourished Eyes: PERRL, anicteric sclera Ears, Nose, Mouth, Throat: moist mucous membranes, hearing normal Cardiovascular: regular rate and rhythym, no murmur, rub, or gallop, edema Respiratory: no respiratory distress, no rales or rhonchi Gastrointestinal: normoactive bowel sounds, soft, non-tender abdomen Genitourinary: no bladder fullness, No chapman in urethra Skin: warm, normal color Musculoskeletal: full muscle strength, no muscle tenderness Neurologic: AAOx3 Psychiatric: interacting appropriately ICD10 Worksheet Patient Problems: Problems Problem Status Onset CHF (congestive heart failure) Acute Lower GI bleed Acute
--- NOTE | 2018-03-30 16:13 | ASMTCMCOM ---
CM Note CM Note Notes: 03/30/2018 Case Management Note Discussed with RN. Reviewed chart. Discussed during rounds. Upon discharge on 03/21 referral made to [facility]. Phone call to [facility] to alert to pt admission. [facility] unable to open patient in February as pt was not homebound at that time. Met w/pt to discuss recommendations for SNF rehab. Pt agreeable. Referrals sent to [facility] (first choice), [facility] and [facility] in [place]. Provided list to pt. Case Management d/c poc: SNF rehab pending acceptance and pt choice. Case Management to follow. Date Signed: 03/30/2018 04:10 PM Electronically Signed By:Gaby Paul RN
[2018-03-30] MEDS: ATORVASTATIN CALCIUM 10 MG TAB PO SCH (21:27)
[2018-03-30] MEDS: INSULIN GLARGINE 100 UNITS/ML UNIT SC SCH (21:27)
[2018-03-30] MEDS: ASPIRIN 325 MG TAB PO SCH (21:27)
[2018-03-31 06:26] LABS: INR 3.37 (0.83-1.16); PROTIME(PATIENT) 33.9 SEC (12.0-15.0)
[2018-03-31] MEDS ORDERED: amLODIPine BESYLATE 5 MG TAB PO SCH (09:30)
[2018-03-31] MEDS ORDERED: DILTIAZEM CD 120 MG CAP PO SCH (09:30)
[2018-03-31] MEDS ORDERED: POTASSIUM CL 10 MEQ TAB PO SCH (10:00)
[2018-03-31] MEDS ORDERED: guaiFENesin 600 MG TAB.ER PO SCH (10:00)
--- NOTE | 2018-03-31 10:04 | PDCARPN ---
Cardiology Progress Note Chief Complaint: SCHF Assessment/Plan: Assessment: 67 y/o M PMH CAD s/p 5V- CABG 2012, SCHF with EF 25%, permanent AF with single chamber ICD, chronic AC on warfarin, CKD with baseline Cr 2.5, MM, poorly controlled DM (last A1C >10%), obesity, DENZEL/biPAP, dilated ascending aorta 4.4 cm, recent GIB 2/2 diverticulosis, recent coagulopathy, p/w worsening dyspnea. BNP greater than typical baseline now 26K (previously 10K prior to this admission). Last echo 01/06 showed LVEF 25%, mild-mod MR, mild TR, ascending Ao 4.1 cm. Last MPI 09/05 showed large anterior scar with ischemia and EF 20%. #. SCHF: p/w worsening TAPIA and more elevated BNP transition to PO torsemide has also had Metolazone started will add K+ and plan to follow closely in outpatient setting with routine labs #. hypoxic respiratory failure: multifactorial from SCHF, pleural effusion, untreated sleep apnea, obesity order started with [facility] #. permanent AF: on Warfarin for elevated [id number] of 4 rates appear moderately controlled will add Dilt CD today for elevated HR and BP #. htn: BP above goal increased Metoprolol and now will add Dilt CD #. CAD/CABG: last MPI without ischemia continue medical management with Atorvastatin, ASA, Metoprolol succinate/ not on ACEi due to CKD no cp currently #. anemia: due to recent GIB and ACD continue IV iron 2/2 GIANCARLO/ will transition to PO on discharge #. DENZEL: had previously been on biPAP but is requiring a repeat sleep study which he has scheduled for this week #. CKD: Cr at typical baseline #. DM: he is working with Dr. Diaz for glycemic control we discussed diet for weight loss and glycemic control #. GIB: no e/o of active bleeding Plan: 1- transition to PO diuretics 2. ongoing IV iron while inpt and then transition to PO 3. Add Klor con for daily dosing/ BMP in 1 week 4. Add Dilt CD for rate control and BP 5. Add Mucinex for dry cough 03/31/18 10:31 Subjective: Feeling better. Dry cough while sitting and talking. No pnd/orthopnea, cp. Has walked around the room. Contemplating going to rehab. Objective: Vital Signs (8 Hrs) Temp Pulse Resp BP Pulse Ox 03/31/18 07:18 97.9 F 86 17 143/93 H 94 03/31/18 04:00 97.8 F 81 20 146/89 H 97 Intake/Output (24 Hrs) 03/30/18 03/31/18 04/01/18 05:59 05:59 05:59 Intake Total 1830 1790 Output Total 3050 1800 325 Balance -1220 -10 325 Intake: Oral (ml) 1830 1670 IV Infused (ml) 120 Sodium Ferric Gluconat/ 120 Sucrose 125 mg In Ns 100 ml @ 110 mls/hr IV DAILY [facility] Rx#:[id number] Output: Urine (ml) 3050 1800 325 Toilet 2100 850 Urinal 950 950 325 Other: Weight 130 kg Number of Voids Toilet 4 Urinal 1 2 Number of Stools Toilet 1 Result Diagrams: 03/30/18 04:35 03/31/18 06:00 - Physical Exam Constitutional: no apparent distress Eyes: anicteric sclera Ears, Nose, Mouth, Throat: moist mucous membranes Cardiovascular: irregularly irregular Respiratory: clear to auscultate bilat, no crackles, no wheezes, reduced air movement Gastrointestinal: normoactive bowel sounds, no tenderness Genitourinary: no suprapubic tenderness Skin: no rashes, no abrasions, no edema Neurologic: AAOx3 Psychiatric: cooperative, interactive ICD10 Worksheet Patient Problems: Problems Problem Status Onset CHF (congestive heart failure) Acute Lower GI bleed Acute
[2018-03-31] MEDS: INSULIN LISPRO 100 UNIT/ML SC SCH ×2 (10:05→12:48)
[2018-03-31] MEDS: valACYclovir 500 MG TAB PO SCH (10:06)
[2018-03-31] MEDS: METOPROLOL SUCCINATE XR 100 MG TAB PO SCH (10:06)
[2018-03-31] MEDS: CALCITRIOL 0.25 MCG CAP PO SCH (10:06)
[2018-03-31] MEDS: CHOLECALCIFEROL VIT D3 1,000 UNITS TAB PO SCH (10:06)
[2018-03-31] MEDS: METOLAZONE 2.5 MG TAB PO SCH (10:07)
[2018-03-31] MEDS: MULTIVITAMINS 1 EACH TAB PO SCH (10:07)
[2018-03-31] MEDS: FUROSEMIDE 40 MG/4 ML VIAL IVP SCH (10:09)
[2018-03-31] MEDS: SODIUM FERRIC GLUCONAT/SUCROSE 125 MG in NS 100 ML IV SCH (10:12)
[2018-03-31 12:11] VITALS: BP 144/85
--- NOTE | 2018-03-31 13:04 | HOSPPROG ---
Hospitalist Progress Note Assessment/Plan: 67 yo M w sCHF CHF, Acute, Systolic, improving increased bnp today noted has LE edema po torsemide w zaroxolyn CKD, Cr baseline is 2.5, at baseline Chronic Afib warfarin, amiodarone Recent GI bleed hct stable COPD, not in exacerbation IDDM, with hyperglycemia a1c, 03/08 is 10.4 lantus increased, blood sugars OK weakness: ambulate tid w assistance PT to see amenable to snf dispo: to snf today > 30 minutes Subjective: has bed at snf. amenable to dc Objective: Vital Signs Temp Pulse Resp BP Pulse Ox 36.4 C 95 18 144/85 H 99 03/31/18 12:00 03/31/18 12:00 03/31/18 12:00 03/31/18 12:00 03/31/18 12:00 Laboratory Results 03/30/18 04:35 03/31/18 06:00 03/30/18 03/31/18 04/01/18 05:59 05:59 05:59 Intake Total 1830 1790 620 Output Total 3050 1800 600 Balance -1220 -10 20 PT 33.9 SEC (12.0-15.0) H 03/31/18 06:00 INR 3.37 (0.83-1.16) H 03/31/18 06:00 - Physical Exam Constitutional: no apparent distress, appears nourished Eyes: PERRL, anicteric sclera Ears, Nose, Mouth, Throat: moist mucous membranes, hearing normal Cardiovascular: regular rate and rhythym, no murmur, rub, or gallop Respiratory: no respiratory distress, no rales or rhonchi Gastrointestinal: normoactive bowel sounds, soft, non-tender abdomen Genitourinary: no bladder fullness, No chapman in urethra Skin: warm, normal color Musculoskeletal: full muscle strength Neurologic: AAOx3 ICD10 Worksheet Patient Problems: Problems Problem Status Onset CHF (congestive heart failure) Acute Lower GI bleed Acute
--- NOTE | 2018-03-31 13:07 | PDIAF ---
- Diagnosis Diagnosis: sCHF Code Status: Full Code - Medication Management Discharge Medications: electronically signed and located in the Home Medication List. - Orders Services needed: Registered Nurse, Certified Machine Operator Hop Worker, Physical Therapy, Occupational Therapy Isolation Type: None Diet Recommendation: sodium restricted - Labs/Radiology BMP Date: [facility]04[facility] - Follow Up Care Current Providers and Referrals: Celso Gomez MD [Medical Doctor] - 04/07/18 2:00 pm Jasmeet Diaz MD [Primary Care Provider] - As per Instructions
--- NOTE | 2018-03-31 13:10 | PDIAF ---
- Diagnosis Diagnosis: sCHF Code Status: Full Code - Medication Management Discharge Medications: electronically signed and located in the Home Medication List. - Orders Services needed: Registered Nurse, Certified County Program Technician, Physical Therapy, Occupational Therapy Isolation Type: None Diet Recommendation: sodium restricted - Labs/Radiology BMP Date: 04/04/18 (results to [facility]) PT/INR Date: 04/04/18 (goal 2-3; q 3 days) - Follow Up Care Current Providers and Referrals: Celso Gomez MD [Medical Doctor] - 04/07/18 2:00 pm Jasmeet Diaz MD [Primary Care Provider] - As per Instructions
--- NOTE | 2018-03-31 13:45 | ASMTDCNOTE ---
Case Management Discharge Discharge Order Complete? Answers: Yes Patient to Obtain Answers: Other Notes: [facility] in [place] Medications Transportation Arranged Answers: Other Notes: [facility] transport arranged by Candy at [facility] Transport will Pick (Date 03/31/2018 03:15 PM & Time) Faxed Final Orders Answers: Yes Notes: to [facility] Agency/Facility Transfer Answers: Yes Notes: to [facility] Report Printed & Faxed to Receiving Agency Discharge Comments Notes: 03/31/2018 Case Management Note Pt to discharge to [facility] in [place]. [facility] arranged transport with Andie Travis. RN to call report. Faxed final orders. Date Signed: 03/31/2018 01:42 PM Electronically Signed By:Gaby Paul RN
--- NOTE | 2018-03-31 13:46 | ASDISCHSUM ---
Discharge Information Plan Status:SNF Medically Cleared to Leave:03/30/2018 Discharge Date:03/31/2018 03:33 PM CM D/C Disposition:Intermediate Facility ADT D/C Disposition:Home, Routine, Self-Care Projected Discharge Date:04/01/2018 11:00 AM Transportation at D/C:Wheelchair Van Discharge Delay Reason: Follow-Up Date:04/01/2018 11:00 AM Discharge Slot: Final Diagnosis: Placement Information Referral Type:*Custodial/SNF Referral ID:[facility]-[id number] Provider Name:Coby torres [place] Address 1:[address] [facility] [address] [facility] Address 2: City:[place] Selection Factors: State:[place] Patient Contact Information Contact Name:RAMESH Relationship:Friend Address: Work Phone: [facility] Alternate Phone: [facility]/Zip Code:[place] Email: Financial Information Financial Class:Medicare Primary Plan Desc:MEDICARE INPATIENT Primary Plan Number:[id number] Secondary Plan Desc:FRANCINE KANG INDEMNITY Secondary Plan Number:[id number] Assessment Information LACE LACE Acuity / Level of Answers: Yes Care: Did the patient have an inpatient admission? Comorbidities - select Answers: Chronic pulmonary disease all that apply Congestive heart failure Coronary Artery Disease Diabetes (uncontrolled or controlled) Moderate or severe liver or renal disease Previous myocardial infarction Other Notes: AFib # of Emergency department Answers: 1-2 visits in the last 6 months Score: 17 Date Signed: 03/25/2018 08:34 AM Electronically Signed By:Vivi Paul JORGE LUIS CM Progress Note CM Note CM Note Notes: Pt is a 67 y/o man admitted for CHF. Pt was recently d/c w/ a GI bleed from [facility] on 03/21/18. Pt will most likely d/c independent when medically stable. No therapies ordered at this time. CM available for changes. Plan: Independent Date Signed: 03/25/2018 04:44 PM Electronically Signed By:RAJAT Gonsalves [facility] CM Progress Note CM Note CM Note Notes: Pt discussed in rounds. Pt would likely benefit from PT/OT, CM spoke with MD PHILLIP to submit orders. CM to follow to determine discharge plan pending evals. Plan: TBD Date Signed: 03/28/2018 04:16 PM Electronically Signed By:RAJAT Andrew [facility] CM Progress Note CM Note CM Note Notes: 03/30/2018 Case Management Note Discussed with RN. Reviewed chart. Discussed during rounds. Upon discharge on 03/21 referral made to [facility]. Phone call to [facility] to alert to pt admission. [facility] unable to open patient in February as pt was not homebound at that time. Met w/pt to discuss recommendations for SNF rehab. Pt agreeable. Referrals sent to [facility] (first choice), [facility] and [facility] in [place]. Provided list to pt. Case Management d/c poc: SNF rehab pending acceptance and pt choice. Case Management to follow. Date Signed: 03/30/2018 04:10 PM Electronically Signed By:Gaby Paul RN Case Management Discharge Plan Note Case Management Discharge Discharge Order Complete? Answers: Yes Patient to Obtain Answers: Other Notes: [email or web address] in [place] Medications Transportation Arranged Answers: Other Notes: [employer] transport arranged by Candy at [email or web address] Transport will Pick (Date 03/31/2018 03:15 PM & Time) Faxed Final Orders Answers: Yes Notes: to [employer] [employer] Agency/Facility Transfer Answers: Yes Notes: to [employer] Report Printed & Faxed to Receiving Agency Discharge Comments Notes: 03/31/2018 Case Management Note Pt to discharge to [email or web address] in [place]. [email or web address] arranged transport with [employer]. RANDAL to call report. Faxed final orders. Date Signed: 03/31/2018 01:42 PM Electronically Signed By:Gaby Paul RN Intervention Information Intervention Type:*IM-Signed Date of Service:03/31/2018 03:39 PM Patient Type:Inpatient Staff Member:Vivi Paul Hours: Discipline: Severity: Comment:
--- NOTE | 2018-03-31 20:27 | GDS ---
DISCHARGE DIAGNOSES: 1. [id number]-[id number] systolic heart failure. 2. Blood loss anemia from recent gastrointestinal bleed. 3. Atrial fibrillation. 4. Coronary artery disease. 5. Generalized weakness and deconditioning. 6. Diabetes. 7. Chronic congestive heart failure with ejection fraction of 20% to 25%. 8. Chronic kidney disease with baseline creatinine about 2.5. 9. Obesity. 10. Chronic obstructive pulmonary disease. 11. Acute hypoxic respiratory failure. 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 Please see admission history and physical by Dr. German Fay. The patient presented on the evenin g of the with dyspnea on exertion and generalized weakness as well as an elevated BNP. He was di uresed while here, although there was some difficulty with diuresis, and he was back and forth on diu retics. Ultimately, responding to some IV Lasix at relatively high doses as well as Zaroxolyn. Brian tionally, his atrial fibrillation was felt to be a bit on the rapid side with rates in the low 100s. Diltiazem was added with improvement. He received IV iron while here. His hemoglobin was in the 9- 10 range without ongoing blood loss. His INR was supratherapeutic with Coumadin being held but being resumed on discharge. INR will be followed every 3 days as an outpatient. He did not receive antibiotics while here. He is discharged to [facility] for rehabilitation. He has outpatient Cardiology followup. /[id number]/MODL
== END 2018-03-31 15:33 | DRG 291 ==
LOC: F2W 21:11
PROVIDERS: ADMIT Internal Medicine; ATTEND Internal Medicine
DX: I50.23 Acute on chronic systolic (congestive) heart failure (principal); J96.01 Acute respiratory failure with hypoxia; D62 Acute posthemorrhagic anemia; I48.2 Chronic atrial fibrillation; I25.10 Atherosclerotic heart disease of native coronary artery without angina pectoris; E11.319 Type 2 diabetes mellitus with unspecified diabetic retinopathy without macular edema; N18.9 Chronic kidney disease, unspecified; E66.9 Obesity, unspecified; J44.9 Chronic obstructive pulmonary disease, unspecified; I25.2 Old myocardial infarction; Z95.1 Presence of aortocoronary bypass graft; Z79.4 Long term (current) use of insulin; Z95.810 Presence of automatic (implantable) cardiac defibrillator
CPT/HCPCS: 84484-ER; 97162-GP; 97166-GO; 97530-GO; 97535-GO; J1815; J1940; J2916; J3475